=== PATIENT | female | born 1965 | race Caucasian/White ===

== ENCOUNTER 2016-10-11 22:06 | Emergency (ER) | payer MEDICAID ==
[~2016-10-11] VITALS: Ht 160 cm; Wt 78.2 kg
[2016-10-11 22:07] VITALS: BP 128/87
== END 2016-10-11 23:22 | disposition home or self-care (01) ==
LOC: ED 23:00
DX: S60.222A Contusion of left hand, initial encounter (principal); X58.XXXA Exposure to other specified factors, initial encounter; Y93.89 Activity, other specified; Y92.009 Unspecified place in unspecified non-institutional (private) residence as the place of occurrence of the external cause; Y99.8 Other external cause status
CPT/HCPCS: 99284

== ENCOUNTER 2016-12-17 05:08 | Emergency (ER) | payer MEDICAID ==
[~2016-12-17] VITALS: Ht 160 cm; Wt 75.4 kg
[2016-12-17] MEDS ORDERED: SODIUM CHLORIDE 0.9% 1,000ML IVBOLUS ONE (05:30)
[2016-12-17] MEDS ORDERED: ONDANSETRON 2MG/ML, 2ML IVPush ONE (05:30)
[2016-12-17] MEDS ORDERED: SODIUM CHLORIDE FLUSH 10ML SYR IVF ONE (05:30)
[2016-12-17] MEDS ORDERED: ONDANSETRON 2MG/ML, 2ML ONE (05:46)
[2016-12-17] MEDS ORDERED: MORPHINE SULFATE 4 MG/ML, 1ML ONE ×2 (05:46→08:13)
[2016-12-17 05:57] LABS: HEMATOCRIT 41.6 % (34.6-47.8); WHITE BLOOD COUNT 14.2 x10^3/uL (3.4-10)
[2016-12-17] MEDS: MORPHINE SULFATE 4 MG/ML, 1ML IVPush PRN ×2 (05:58→08:30)
[2016-12-17 06:06] LABS: BLOOD UREA NITROGEN 17 mg/dL (7-18)
[2016-12-17 06:14] LABS: ASPARTATE AMINO TRANSFERASE 15 U/L (15-37)
[2016-12-17 08:58] LABS: PATH.CAST-FLAG NOT PRESENT; SPERM-FLAG NOT PRESENT; SRC-FLAG NOT PRESENT; XTAL-FLAG NOT PRESENT; YLC-FLAG NOT PRESENT
[2016-12-17 09:07] LABS: HCG UR OBC PASS
[2016-12-17 09:46] VITALS: BP 110/70
== END 2016-12-17 09:49 | disposition home or self-care (01) ==
LOC: ED 05:27
DX: N30.90 Cystitis, unspecified without hematuria (principal)
CPT/HCPCS: 36415; 74022; 74177; 80053; 81001; 81025; 83690; 85025; 87077; 87086; 87186; 93005; 96361; 96374; 96375; 96376; 99285; J2405; J7030